=== PATIENT | female | born 1975 | race Caucasian/White ===

== ENCOUNTER 2016-06-16 10:12 | Outpatient (CLI) | payer OTHER ==
[2016-06-16 12:05] LABS: ALBUMIN 4.2 g/dL (3.4-4.8); BILIRUBIN,DIRECT 0.1 mg/dL (0.0-0.3); TOTAL BILIRUBIN 0.3 mg/dL (0.0-1.0); TOTAL PROTEIN, SERUM 8.2 g/dL (6.4-8.3)
== END 2016-06-16 19:25 | disposition home or self-care (01) ==
LOC: SLB 10:12
PROVIDERS: ATTEND Family Medicine
DX: I10 Essential (primary) hypertension (principal); F43.22 Adjustment disorder with anxiety; R53.83 Other fatigue
CPT/HCPCS: 36415; 80061; 80076; 82150-TC; 82977-TC; 83690-TC

== ENCOUNTER 2017-08-21 09:15 | Outpatient (CLI) | payer OTHER | END 2017-08-21 20:15 | disposition home or self-care (01) | LOC: SUS 09:15 | PROVIDERS: ATTEND Family Medicine | DX: R19.00 Intra-abdominal and pelvic swelling, mass and lump, unspecified site (principal) | CPT/HCPCS: 76830-TC; 76857 ==

== ENCOUNTER 2017-08-30 08:29 | Day surgery (SDC) | payer OTHER ==
[2017-08-29 13:30] LABS: BASOPHILS # (AUTO) 0.1 K/uL (0.0-0.2); BASOPHILS % (AUTO) 0.9 % (0.0-2.0); EOSINOPHILS # (AUTO) 0.2 K/uL (0.0-0.4); EOSINOPHILS % (AUTO) 1.7 % (0.0-4.0); HEMOGLOBIN 13.7 g/dL (12.0-16.0); LYMPHOCYTES # (AUTO) 2.4 K/uL (1.0-5.5); LYMPHOCYTES % (AUTO) 25.6 % (20.5-51.5); MEAN CORPUSCULAR HEMOGLOBIN 29 pg (27-31); MEAN CORPUSCULAR HGB CONC 34 % (32-36); MEAN CORPUSCULAR VOLUME 85 fL (79.0-98.0); MONOCYTES # (AUTO) 0.3 K/uL (0.0-1.0); MONOCYTES % (AUTO) 3.5 % (1.7-9.3); NEUTROPHILS # (AUTO) 6.3 K/uL (1.8-7.7); NEUTROPHILS % (AUTO) 68.3 % (40.0-70.0); PLATELET COUNT (AUTO) 344 K/uL (130-430); RED BLOOD CELL COUNT(AUTO) 4.82 MIL/uL (4.2-6.2); RED CELL DISTRIBUTION WIDTH 12.8 % (9.0-15.0); WHITE BLOOD COUNT (AUTO) 9.3 K/uL (4.8-10.8)
[2017-08-29 14:10] LABS: BILIRUBIN,URINE NEGATIVE (NEGATIVE); BLOOD, URINE 1+ (NEGATIVE); CLARITY/URINE CLEAR (CLEAR); COLOR,URINE YELLOW (YELLOW); GLUCOSE,URINE NEGATIVE (NEGATIVE); KETONES,URINE NEGATIVE (NEGATIVE); LEUKOCYTE ESTERASE ,URINE NEGATIVE (NEGATIVE); NITRITE, URINE NEGATIVE (NEGATIVE); PH,URINE 5.5 (5.0-8.0); PROTEIN URINE NEGATIVE (NEGATIVE); UROBILINOGEN,URINE 0.2 (0.2-1.0)
[2017-08-29 14:41] LABS: WBC,URINE 0-3 /HPF (0-3)
[2017-08-29 14:42] LABS: BACTERIA,URINE MODERATE /HPF (None Seen)
[2017-08-29 14:44] LABS: MUCUS,URINE 1+ /LPF (None Seen)
[~2017-08-30] VITALS: Ht 157.5 cm; Wt 102.1 kg
[~2017-08-30 08:29] MED LIST: CLINDAMYCIN PHOS 600 MG/ D5W 50 ML PREMIX IV ONE
[2017-08-30] MEDS ORDERED: fentaNYL CITRATE/PF 100 MCG/2 ML AMP IVP PRN ×2 (08:45)
[2017-08-30] MEDS ORDERED: ONDANSETRON HCL 4 MG/2 ML VIAL IVP PRN ×2 (08:45→13:30)
[2017-08-30] MEDS ORDERED: KETOROLAC TROMETHAMINE 30 MG VIAL IVP PRN (08:45)
[2017-08-30] MEDS ORDERED: PROPOFOL 200MG/ 20ML VIAL (DIPRIVAN) IV ONE (13:35)
[2017-08-30] MEDS ORDERED: ONDANSETRON HCL 4 MG/2 ML VIAL IVP ONE (13:35)
[2017-08-30] MEDS ORDERED: GLYCOPYRROLATE 0.2 MG/ML VIAL IJ ONE (13:35)
[2017-08-30] MEDS ORDERED: KETOROLAC TROMETHAMINE 30 MG VIAL IVP ONE ×2 (13:35→16:30)
[2017-08-30] MEDS ORDERED: SEVOFLURANE 15 MIN GAS INH ONE (13:35)
[2017-08-30] MEDS ORDERED: NS 1000 ML BAG IV ONE (13:35)
[2017-08-30] MEDS ORDERED: ROCURONIUM BROMIDE 10 MG/ML (ZEMURON) IV ONE (13:35)
[2017-08-30] MEDS ORDERED: LR 1,000 ML IV.SOLN IV ONE (13:35)
[2017-08-30] MEDS ORDERED: NEOSTIGMINE METHYLSULFATE 1 MG/ML, 10 ML VIAL IVP ONE (13:35)
[2017-08-30] MEDS ORDERED: MIDAZOLAM HCL 5 MG/ML VIAL (VERSED) IV ONE (13:35)
[2017-08-30] MEDS ORDERED: fentaNYL CITRATE/PF 100 MCG/2 ML AMP IVP ONE (13:35)
[2017-08-30] MEDS ORDERED: DEXAMETHASONE SOD PHOSPHATE 4 MG/ML VIAL IVP ONE (13:35)
[2017-08-30] MEDS ORDERED: CLINDAMYCIN 600 MG in D5W 50 ML IV ONE (13:45)
[2017-08-30] MEDS ORDERED: ONDANSETRON HCL 4 MG/2 ML VIAL ONE (14:06)
[2017-08-30] MEDS ORDERED: ALBUTEROL SULFATE 0.083% 2.5 MG/3 ML VIAL.NEB INH ONE ×2 (14:15→14:17)
[2017-08-30 15:11] VITALS: BP_SYST 121
[2017-08-30 20:00] VITALS: BP_SYST 126
[2017-08-30] MEDS ORDERED: traMADol HCL HCL 50 MG TABLET (ULTRAM) PO PRN (21:45)
[2017-08-30] MEDS ORDERED: MORPHINE 4 MG/ML INJ. SYRINGE IVP PRN (21:45)
[2017-08-30] MEDS: CLINDAMYCIN 600 MG in D5W 50 ML IV SCH (23:50)
[2017-08-30] MEDS: KETOROLAC TROMETHAMINE 30 MG VIAL IVP SCH (23:53)
[2017-08-31 01:08] VITALS: BP_SYST 117
[2017-08-31] MEDS: KETOROLAC TROMETHAMINE 30 MG VIAL IVP SCH ×2 (05:30→11:04)
[2017-08-31] MEDS: CLINDAMYCIN 600 MG in D5W 50 ML IV SCH ×2 (05:31→11:05)
[2017-08-31 07:56] VITALS: BP_SYST 121
[2017-08-31 12:00] VITALS: BP_SYST 123
[2017-08-31] MEDS ORDERED: TRAM50TA92 PO (15:57)
[2017-08-31 16:00] VITALS: BP_SYST 110
[2017-08-31 16:10] VITALS: BP_SYST 110
[2017-08-31] MEDS ORDERED: CIPR-211 PO (16:16)
== END 2017-08-31 17:40 | disposition home or self-care (01) ==
LOC: SDS 08:29 → SMU 08:40 → SDS 08-31 17:40
PROVIDERS: ATTEND Specialist
DX: N83.202 Unspecified ovarian cyst, left side (principal); N70.11 Chronic salpingitis; K66.0 Peritoneal adhesions (postprocedural) (postinfection); E66.01 Morbid (severe) obesity due to excess calories; J45.909 Unspecified asthma, uncomplicated; Z90.710 Acquired absence of both cervix and uterus; Z88.0 Allergy status to penicillin; Z98.890 Other specified postprocedural states
CPT/HCPCS: 36415; 44180; 58661; 81000; 85025; 87081; 88305; 94640; C1727; C1782; J1100; J1885 ×2; J2250; J2405; J2704; J2710; J3010; J3490 ×4; J7030; J7060 ×2; J7120; J7613

== ENCOUNTER → 2018-07-12 | Outpatient (CLI) | payer OTHER ==
[~2018-07-12] MED LIST changes: +CIPR-211 PO; -CLINDAMYCIN PHOS 600 MG/ D5W 50 ML PREMIX IV ONE; +TRAM50TA92 PO
[2018-07-12 09:14] LABS: BASOPHILS % (AUTO) 0.5 % (0.0-2.0); EOSINOPHILS # (AUTO) 0.2 K/uL (0.0-0.4); EOSINOPHILS % (AUTO) 2.8 % (0.0-4.0); HEMATOCRIT 42.5 % (36-48); HEMOGLOBIN 14.2 g/dL (12.0-16.0); LYMPHOCYTES # (AUTO) 2.9 K/uL (1.0-5.5); LYMPHOCYTES % (AUTO) 34.1 % (20.5-51.5); MEAN CORPUSCULAR HEMOGLOBIN 29 pg (27-31); MEAN CORPUSCULAR HGB CONC 33 % (32-36); MEAN CORPUSCULAR VOLUME 86 fL (79.0-98.0); MONOCYTES # (AUTO) 0.3 K/uL (0.0-1.0); NEUTROPHILS % (AUTO) 58.6 % (40.0-70.0); PLATELET COUNT (AUTO) 250 K/uL (130-430); RED BLOOD CELL COUNT(AUTO) 4.97 MIL/uL (4.2-6.2); RED CELL DISTRIBUTION WIDTH 13.5 % (9.0-15.0); WHITE BLOOD COUNT (AUTO) 8.6 K/uL (4.8-10.8)
[2018-07-12 09:22] LABS: CALCIUM 8.7 mg/dL (8.4-11.0); CREATININE 0.67 mg/dL (0.55-1.30); POTASSIUM 3.9 mmol/L (3.5-5.1)
[2018-07-12 09:37] LABS: ALBUMIN 3.4 g/dL (3.4-4.8); THYROID STIMULATING HORMONE 0.92 uIu/mL (0.36-3.74); TOTAL BILIRUBIN 0.3 mg/dL (0.0-1.0)
[2018-07-16 08:06] LABS: HEMOGLOBIN A1C 7.7 % (4.8-5.6)
[2018-07-16 13:38] LABS: RUBELLA AB, IgM <20.0 AU/mL (0.0-19.9)
[2018-07-19 18:05] LABS: HEPATITIS B SURFACE AG Negative (Negative)
== END | disposition home or self-care (01) ==
LOC: SLB 08:34
PROVIDERS: ATTEND Internal Medicine
DX: Z00.00 Encounter for general adult medical examination without abnormal findings (principal)
CPT/HCPCS: 36415; 80053; 83036; 84443-TC; 85025; 86707; 86735; 86762; 87340

== ENCOUNTER 2018-07-31 06:44 | Outpatient (CLI) | payer OTHER ==
[2018-07-31 09:41] LABS: ALBUMIN 3.6 g/dL (3.4-4.8); BILIRUBIN,DIRECT 0.1 mg/dL (0.0-0.3); TOTAL BILIRUBIN 0.4 mg/dL (0.0-1.0)
[2018-08-01 07:06] LABS: HEPATITIS A AB, IgM Negative (Negative); HEPATITIS C VIRUS AB <0.1 s/co ratio (0.0-0.9)
== END 2018-07-31 20:00 | disposition home or self-care (01) ==
LOC: SLB 06:44
PROVIDERS: ATTEND Family Medicine
DX: Z23 Encounter for immunization (principal); E11.9 Type 2 diabetes mellitus without complications
CPT/HCPCS: 36415; 80076; 83036; 86706; 86708; 86709; 86803

== ENCOUNTER 2018-08-03 18:03 | Emergency (ER) | payer OTHER ==
[~2018-08-03] VITALS: Ht 157.5 cm; Wt 105.7 kg
[2018-08-03 18:05] VITALS: BP_SYST 108
[2018-08-03] MEDS ORDERED: DIPH-TET-PERTUS Vaccine 0.5 ML VIAL (ADACEL) I.M. ONE (18:30)
[2018-08-03] MEDS ORDERED: BACITRACIN 1 GM OINT TP ONE (18:30)
[2018-08-03 19:19] VITALS: BP_SYST 108
== END 2018-08-03 19:19 | disposition home or self-care (01) ==
LOC: SED 18:03
DX: S61.301A Unspecified open wound of left index finger with damage to nail, initial encounter (principal); J44.9 Chronic obstructive pulmonary disease, unspecified; Z88.0 Allergy status to penicillin; Z88.5 Allergy status to narcotic agent; Z79.899 Other long term (current) drug therapy; W26.8XXA Contact with other sharp object(s), not elsewhere classified, initial encounter; Y93.89 Activity, other specified; Y92.89 Other specified places as the place of occurrence of the external cause; Y99.8 Other external cause status
CPT/HCPCS: 90715; 99283

== ENCOUNTER 2018-08-16 18:40 | Outpatient (CLI) | payer OTHER ==
[2018-08-18 08:21] LABS: RUBELLA AB, IgG 8.22 index (Immune >0.99)
== END 2018-08-16 20:46 | disposition home or self-care (01) ==
LOC: SLB 18:40
PROVIDERS: ATTEND Family Medicine
DX: Z01.84 Encounter for antibody response examination (principal); Z23 Encounter for immunization
CPT/HCPCS: 36415; 86735; 86762; 86765; 86787

== ENCOUNTER 2019-10-09 15:48 | Outpatient (CLI) | payer OTHER | END 2019-10-09 20:15 | disposition home or self-care (01) | LOC: SRD 15:48 | PROVIDERS: ATTEND Family Medicine | DX: N63.20 Unspecified lump in the left breast, unspecified quadrant (principal); N63.10 Unspecified lump in the right breast, unspecified quadrant; R92.8 Other abnormal and inconclusive findings on diagnostic imaging of breast | CPT/HCPCS: 77066 ==

== ENCOUNTER 2019-10-10 07:49 | Outpatient (CLI) | payer OTHER | END 2019-10-10 20:14 | disposition home or self-care (01) | LOC: SUS 07:49 | PROVIDERS: ATTEND Family Medicine | DX: N60.02 Solitary cyst of left breast (principal); N60.01 Solitary cyst of right breast | CPT/HCPCS: 76641 ==